=== PATIENT | female | born 1945 | race Caucasian/White ===

== ENCOUNTER → 2023-10-17 08:12 | Outpatient (REF) | payer MEDICARE, OTHER, SELFPAY ==
[2023-10-17 12:23] LABS: % Basophils 0.9 % (0-2); % Eosinophils 5.5 % (0-6); % Immature Granulocytes 0.3 % (0-0.5); % Lymphocytes 47.7 % (20.5-51.1); % Monocytes 10.1 % (1.7-9.3); % Neutrophils 35.5 % (42.2-75.2); Absolute Eosinophils 0.2 10^3/uL (0-0.7); Absolute Lymphocytes 1.7 10^3/uL (1.2-3.4); Absolute Monocytes 0.4 10^3/uL (0.1-0.6); Absolute Neutrophils 1.2 10^3/uL (1.4-6.5); Hemoglobin 12.4 g/dL (12.0-16.0); Mean Corp Hgb Conc. 33.5 g/dL (33.0-37.0); Mean Corpuscular Hgb 29.6 pg (27.0-31.0); Mean Corpuscular Volume 88.3 fL (81.0-99.0); Mean Platelet Volume 10.3 fL (7.4-10.4); Nucleated Red Blood Cells % 0 %; Platelet Count 295 10^3/uL (130-400); Red Blood Cell Count 4.19 10^6/uL (4.20-5.40); Red Cell Dist. Width 14.7 % (11.5-14.5); White Blood Cell Count 3.5 10^3/uL (4.8-10.8)
[2023-10-17 12:45] LABS: ALT (SGPT) 13 U/L (0-35); AST (SGOT) 22 U/L (14-36); Alkaline Phosphatase 68 U/L (38-126); Blood Urea Nitrogen 20 mg/dl (7-17); Calcium 9.4 mg/dl (8.4-10.2); Carbon Dioxide 29 mmol/L (22-30); Chloride 103 mmol/L (98-107); Glucose 102 mg/dl (70-99); Potassium 4.5 mmol/L (3.5-5.1); Sodium 136 mmol/L (135-145); Total Bilirubin 1.6 mg/dl (0.2-1.3); Total Protein 6.6 g/dl (6.3-8.2); eGFR 57.31
== END ==
LOC: HWLAB 08:12
PROVIDERS: ATTENDING PHYSICIAN Internal Medicine
DX: K22.70 Barrett's esophagus without dysplasia (principal); D70.9 Neutropenia, unspecified; G57.93 Unspecified mononeuropathy of bilateral lower limbs; K59.01 Slow transit constipation; E80.6 Other disorders of bilirubin metabolism
CPT/HCPCS: 36415; 80053; 85025

== ENCOUNTER → 2024-05-06 08:16 | Outpatient (REF) | payer MEDICARE, OTHER, SELFPAY ==
[2024-05-06 09:43] LABS: Glucose 101 mg/dl (70-99)
[2024-05-06 09:56] LABS: Free T4 1.41 ng/dl (0.78-2.19)
[2024-05-06 09:57] LABS: Free T3 3.46 pg/ml (2.77-5.27)
[2024-05-06 10:09] LABS: TSH 1.69 uIU/ml (0.47-4.68)
[2024-05-06 12:58] LABS: Glycohemoglobin (HgbA1c) 5.7 % (4.0-5.6)
[2024-05-08 02:18] LABS: Total T3 (Sendout) 89 ng/dL (80-200)
== END ==
LOC: HWRAD 08:16
PROVIDERS: ATTENDING PHYSICIAN Internal Medicine Endocrinology, Diabetes & Metabolism; FAMILY PHYSICIAN Internal Medicine
DX: E04.2 Nontoxic multinodular goiter (principal); E03.9 Hypothyroidism, unspecified; R73.03 Prediabetes; R53.83 Other fatigue
CPT/HCPCS: 36415; 76536; 82947; 83036; 84439; 84443; 84480; 84481

== ENCOUNTER → 2024-05-15 09:03 | Outpatient (REF) | payer MEDICARE, OTHER, SELFPAY ==
[2024-05-15 12:19] LABS: % Eosinophils 3.8 % (0-6); % Immature Granulocytes 0.2 % (0-0.5); % Lymphocytes 39.7 % (20.5-51.1); % Monocytes 9.1 % (1.7-9.3); % Neutrophils 46.2 % (42.2-75.2); Absolute Eosinophils 0.2 10^3/uL (0-0.7); Absolute Lymphocytes 1.7 10^3/uL (1.2-3.4); Absolute Monocytes 0.4 10^3/uL (0.1-0.6); Absolute Neutrophils 1.9 10^3/uL (1.4-6.5); Hematocrit 37.5 % (37.0-47.0); Hemoglobin 12.5 g/dL (12.0-16.0); Mean Corp Hgb Conc. 33.3 g/dL (33.0-37.0); Mean Corpuscular Hgb 29.5 pg (27.0-31.0); Mean Corpuscular Volume 88.4 fL (81.0-99.0); Mean Platelet Volume 10.2 fL (7.4-10.4); Nucleated Red Blood Cells % 0 %; Platelet Count 324 10^3/uL (130-400); Red Blood Cell Count 4.24 10^6/uL (4.20-5.40); Red Cell Dist. Width 14.6 % (11.5-14.5); White Blood Cell Count 4.2 10^3/uL (4.8-10.8)
[2024-05-15 12:30] LABS: ALT (SGPT) 15 U/L (0-35); AST (SGOT) 24 U/L (14-36); Albumin 4.2 g/dl (3.5-5.0); Alkaline Phosphatase 68 U/L (38-126); Blood Urea Nitrogen 21 mg/dl (7-17); Calcium 9.8 mg/dl (8.4-10.2); Carbon Dioxide 28 mmol/L (22-30); Chloride 101 mmol/L (98-107); Glucose 98 mg/dl (70-99); Potassium 4.6 mmol/L (3.5-5.1); Sodium 141 mmol/L (135-145); Total Bilirubin 1.3 mg/dl (0.2-1.3); Total Protein 6.8 g/dl (6.3-8.2)
== END ==
LOC: HWWDC 09:03
PROVIDERS: ATTENDING PHYSICIAN Internal Medicine
DX: R73.01 Impaired fasting glucose (principal); G62.9 Polyneuropathy, unspecified; K22.70 Barrett's esophagus without dysplasia; S06.9XAD Unspecified intracranial injury with loss of consciousness status unknown, subsequent encounter; E80.6 Other disorders of bilirubin metabolism; Z12.31 Encounter for screening mammogram for malignant neoplasm of breast; Z78.0 Asymptomatic menopausal state; Z13.820 Encounter for screening for osteoporosis
CPT/HCPCS: 36415; 77063; 77067; 77080; 80053; 85025